=== PATIENT | female | born 1955 | race Caucasian/White ===

== ENCOUNTER 2017-11-14 08:51 | Outpatient (CLI) | payer OTHER ==
[~2017-11-14 08:51] MED LIST: HYZAAR 50/12.51 TAB
== END 2017-11-14 12:52 | disposition home or self-care (01) ==
LOC: SONOGRAMA 08:51
DX: E04.1 Nontoxic single thyroid nodule (principal)

== ENCOUNTER 2017-11-14 09:02 | Outpatient (CLI) | payer OTHER | END 2017-11-14 10:55 | disposition home or self-care (01) | LOC: RAD 09:02 | DX: E78.4 Other hyperlipidemia (principal); I10 Essential (primary) hypertension; E03.8 Other specified hypothyroidism; M62.830 Muscle spasm of back ==

== ENCOUNTER 2019-06-22 09:06 | Outpatient (CLI) | payer OTHER | END 2019-06-22 09:38 | disposition home or self-care (01) | LOC: NUCLEAR 09:06 | DX: I87.2 Venous insufficiency (chronic) (peripheral) (principal); I72.4 Aneurysm of artery of lower extremity ==

== ENCOUNTER 2023-04-09 09:55 | Outpatient (CLI) | payer OTHER | END 2023-04-09 10:10 | disposition home or self-care (01) | LOC: SONOGRAMA 09:55 | PROVIDERS: ATTEND Internal Medicine Nephrology | DX: R31.29 Other microscopic hematuria (principal); N28.1 Cyst of kidney, acquired ==